=== PATIENT | female | born 1995 | race Caucasian/White ===

== ENCOUNTER 2024-03-08 16:25 | Emergency (ER) | payer OTHER ==
[~2024-03-08] VITALS: Ht 160 cm; Wt 70.3 kg
[2024-03-08 16:31] VITALS: O2SAT 98
[2024-03-08] MEDS: TETANUS, DIPHTHERIA, PERTUSSIS VAC/PF 0.5ML (>10YR OLD) IM ONE (18:03)
[2024-03-08] MEDS: CEFAZOLIN SODIUM 1000MG/VIAL IM ONE (18:05)
[2024-03-08] MEDS ORDERED: BO1 TP (18:33)
[2024-03-08] MEDS ORDERED: AMOX1TAB16 MT (18:33)
[2024-03-08 18:52] VITALS: BP 113/63; PULSE 63; RESP 18; TEMP 98.7
== END 2024-03-08 19:05 | disposition home or self-care (01) ==
LOC: ER 16:25
DX: S81.832A Puncture wound without foreign body, left lower leg, initial encounter (principal); W55.01XA Bitten by cat, initial encounter; Y93.89 Activity, other specified; Y92.89 Other specified places as the place of occurrence of the external cause; Y99.8 Other external cause status
CPT/HCPCS: 81025; 90715; 90471; 96372; 99284; J0690; Z7610 ×3

== ENCOUNTER 2024-08-08 10:55 | Emergency (ER) | payer MEDICAID, OTHER ==
[~2024-08-08] VITALS: Ht 160 cm; Wt 68.0 kg
[~2024-08-08 10:55] MED LIST: AMOX1TAB16 MT; BO1 TP
[2024-08-08 11:12] VITALS: O2SAT 100
[2024-08-08] MEDS: HYDROCODONE/ACETAMINOPHEN 5/325MG TABLET PO STA (13:23)
[2024-08-08] MEDS ORDERED: NAPR-681 PO (14:11)
[2024-08-08] MEDS ORDERED: T3 PO (14:11)
[2024-08-08 14:23] VITALS: BP 136/89; PULSE 95; RESP 19; TEMP 36.78072; O2SAT 100
== END 2024-08-08 14:25 | disposition home or self-care (01) ==
LOC: ER 10:55
DX: S20.219A Contusion of unspecified front wall of thorax, initial encounter (principal); R51.9 Headache, unspecified; N64.4 Mastodynia; M54.9 Dorsalgia, unspecified; M25.562 Pain in left knee; M25.552 Pain in left hip; V49.40XA Driver injured in collision with unspecified motor vehicles in traffic accident, initial encounter; Y93.89 Activity, other specified; Y92.89 Other specified places as the place of occurrence of the external cause; Y99.8 Other external cause status
CPT/HCPCS: 71045; 72100; 73502; 73562; 81025; 99284